=== PATIENT | female | born 1985 | race Caucasian/White ===

== ENCOUNTER 2017-04-12 14:08 | Emergency (ER) | payer BC, OTHER ==
[2017-04-12 15:01] LABS: BILIRUBIN,URINE NEGATIVE (NEGATIVE)
[2017-04-12 15:04] LABS: HCG UR QUAL NEGATIVE; UA CHARGE (STRIP ONLY) YES; UR CULTURE IF IND NOT INDICATED
--- NOTE | 2017-04-12 15:52 | ED Physician Documentation ---
PD HPI ABD PAIN - Stated complaint Stated Complaint: ABD PX - Chief complaint Chief Complaint: Abd Pain - History obtained from History obtained from: Patient - History of Present Illness Timing - onset: Yesterday (in the morning and has continue to some degree since , with lessening but not gone overnight.) Timing - duration: Days (10/09) Timing - details: Abrupt onset, Still present Quality: Aching, Dull, Pain Location: RUQ, Epigastric, LUQ Radiation: No: Left flank, Left shoulder Improved by: Position (feels better sitting up). No: Laying still, BM Worsened by: Eating, Position (lying down) Associated symptoms: Nausea, Loss of appetite. No: Fever, Vomiting, Diarrhea, Melena, Dysuria, Chest pain, Vaginal bleeding Similar symptoms before: Has not had sx before Recently seen: Not recently seen Review of Systems Constitutional: denies: Fever, Chills Nose: denies: Rhinorrhea / runny nose, Congestion Throat: denies: Sore throat Cardiac: denies: Chest pain / pressure, Palpitations Respiratory: denies: Dyspnea, Cough GI: reports: Abdominal Pain, Nausea. denies: Abdominal Swelling, Vomiting, Constipation, Diarrhea : denies: Dysuria, Frequency Skin: denies: Rash, Lesions Neurologic: denies: Generalized weakness, Focal weakness, Numbness, Near syncope Psychiatric: denies: Depressed Endocrine: denies: Polydypsia, Polyuria, Weight loss, Weight gain Immunocompromised: denies: Immunocompromised PD PAST MEDICAL HISTORY - Past Medical History Past Medical History: Yes Cardiovascular: None Respiratory: None Endocrine/Autoimmune: None GI: None Psych: Anxiety Other Past Medical History: Retinal detachment - Past Surgical History Past Surgical History: Yes General: Appendectomy - Present Medications Home Medications: Ambulatory Orders Medication Instructions Recorded Confirmed Escitalopram Oxalate [Lexapro] 20 mg PO DAILY 04/12/17 04/12/17 Famotidine [Pepcid] 20 mg PO BID #60 tablet 04/12/17 Lidocaine HCl [Lidocaine HCl 5 ml MM Q3H PRN #100 ml 04/12/17 Viscous] Norethindrone-E.estradiol-Iron 1 tab PO DAILY 04/12/17 04/12/17 [Minastrin 24 Fe Chewable Tab] Ondansetron HCl [Zofran] 4 mg PO Q6H PRN #20 tablet 04/12/17 - Allergies Allergies/Adverse Reactions: Allergies Allergy/AdvReac Type Severity Reaction Status Date / Time amoxicillin Allergy Nausea Verified 04/12/17 14:17 - Living Situation Living Situation: reports: With spouse/s.o. Living Arrangement: reports: At home - Social History Does the pt smoke?: No Smoking Status: Never smoker Does the pt drink ETOH?: No Does the pt have substance abuse?: No - Family History Family history: denies: Aortic aneursym, Aortic dissection PD ED PE NORMAL - Vitals Vital signs reviewed: Yes - General General: Alert and oriented X 3, No acute distress, Well developed/nourished - HEENT HEENT: PERRL (nonicteric), Pharynx benign - Neck Neck: Supple, no meningeal sign, No adenopathy - Cardiac Cardiac: RRR, No murmur - Respiratory Respiratory: Clear bilaterally - Abdomen Abdomen: Soft, Non distended, No organomegaly, Other (abd tender epigastric to right side upper without guarding nor rebound. Some percussion tendrness. ) Results - Vitals Vitals: Vital Signs - 24 hr 04/12/17 18:03 Heart Rate 57 L Respiratory 17 Rate Blood Pressure 110/63 O2 Saturation 98 Oxygen O2 Source Room air - Labs Labs: Laboratory Tests 04/12/17 04/12/17 04/12/17 14:45 16:25 16:25 WBC 8.8 RBC 4.78 Hgb 13.6 Hct 39.3 MCV 82.3 MCH 28.5 MCHC 34.6 RDW 13.9 Plt Count 196 MPV 7.9 Neut # 5.8 Lymph # 2.0 [place] # 0.6 Eos # 0.3 Baso # 0.0 Absolute Nucleated RBC 0.01 Nucleated RBCs 0.1 Sodium Potassium Chloride Carbon Dioxide Anion Gap BUN Creatinine Estimated GFR (MDRD) Glucose Calcium Total Bilirubin AST ALT Alkaline Phosphatase Total Protein Albumin Globulin Albumin/Globulin Ratio Lipase Urine Color YELLOW Urine Clarity CLEAR Urine pH 7.0 Ur Specific [place] 1.020 Urine Protein NEGATIVE Urine Glucose (UA) NEGATIVE Urine Ketones 15 H Urine Occult Blood NEGATIVE Urine Nitrite NEGATIVE Urine Bilirubin NEGATIVE Urine Urobilinogen 0.2 (NORMAL) Ur Leukocyte Esterase NEGATIVE Ur Microscopic Review NOT INDICATED Urine Culture Comments NOT INDICATED Urine HCG, Qual NEGATIVE H. pylori IgG Antibody Negative 04/12/17 16:25 WBC RBC Hgb Hct MCV MCH MCHC RDW Plt Count MPV Neut # Lymph # [place] # Eos # Baso # Absolute Nucleated RBC Nucleated RBCs Sodium 136 Potassium 3.8 Chloride 103 Carbon Dioxide 27 Anion Gap 6.0 BUN 9 Creatinine 0.6 Estimated GFR (MDRD) 118 Glucose 88 Calcium 9.1 Total Bilirubin 0.6 AST 15 ALT 16 Alkaline Phosphatase 34 L Total Protein 7.0 Albumin 4.0 Globulin 3.0 Albumin/Globulin Ratio 1.3 Lipase 16 L Urine Color Urine Clarity Urine pH Ur Specific [place] Urine Protein Urine Glucose (UA) Urine Ketones Urine Occult Blood Urine Nitrite Urine Bilirubin Urine Urobilinogen Ur Leukocyte Esterase Ur Microscopic Review Urine Culture Comments Urine HCG, Qual H. pylori IgG Antibody - Rads (name of study) abd RUQ U?S Radiology: EMP read contemporaneously (single gallstone nonmobile without fluid around, has normal wall thickness at 2.2 mm. ) PD MEDICAL DECISION MAKING - ED course Complexity details: reviewed results, re-evaluated patient (improved well with GI cocktail and labs are normal (gallstone but no signs of cholecystitis).), considered differential (seems likley gastritis, but was abrupt onset. Consider gallbladder instead, pancreatic. Will get labs, U/S and try GI cocktail. ), d/w patient Departure - Departure Disposition: 01 Home, Self Care Clinical Impression: Upper abdominal pain Gastritis Qualifiers: Gastritis type: unspecified gastritis Chronicity: acute Gastritis bleeding: without bleeding Qualified Code(s): K29.00 - Acute gastritis without bleeding Condition: Stable Record reviewed to determine appropriate education?: Yes Instructions: ED PUD Vs Gastritis, ED Abdominal Pain Unkn Cause Prescriptions: Lidocaine HCl [Lidocaine HCl Viscous] 5 ml MM Q3H PRN #100 ml PRN Reason: Pain Famotidine [Pepcid] 20 mg PO BID #60 tablet Ondansetron HCl [Zofran] 4 mg PO Q6H PRN #20 tablet PRN Reason: Nausea / Vomiting Comments: It sounds like gastritis/ulcer, so take acid reducing medication twice daily for couple of weeks at least. You can use antacids with/without the lidocaine as needed for pains. Zofran if needed for nausea. You do have a gallstone on the ultrasound but the gallbladder does not look irritated/inflammed. This does not sound like the problem. Recheck if not improved over the next few days. [place] frequent small foods for the next week. Discharge Date/Time: 04/12/17 18:35
[2017-04-12] MEDS ORDERED: MAG HYDROX/AL HYDROX/SIMETH 30 ML UDC PO STA (16:12)
[2017-04-12] MEDS ORDERED: LIDOCAINE VISCOUS 2% 15 ML UDC MM STA (16:12)
[2017-04-12] MEDS ORDERED: LIDOCAINE VISCOUS 2% 15 ML UDC MM ONE (16:16)
[2017-04-12] MEDS ORDERED: MAG HYDROX/AL HYDROX/SIMETH 30 ML UDC ONE (16:16)
[2017-04-12 16:34] LABS: BASOPHILS % (AUTO) 0.5 %; EOSINOPHILS # (AUTO) 0.3 10^3/uL (0.0-0.7); HCT - HEMATOCRIT 39.3 % (37.0-47.0); HGB - HEMOGLOBIN 13.6 g/dL (12.0-16.0); LYMPHOCYTES % (AUTO) 22.6 %; MEAN CORPUSCULAR HEMOGLOBIN 28.5 pg (27.0-31.0); MEAN CORPUSCULAR HGB CONC 34.6 g/dL (32.0-36.0); MEAN CORPUSCULAR VOLUME 82.3 fL (81.0-99.0); MEAN PLATELET VOLUME 7.9 fL (7.9-10.8); MONOCYTES # (AUTO) 0.6 10^3/uL (0.0-1.0); MONOCYTES % (AUTO) 6.5 %; NEUTROPHILS # (AUTO) 5.8 10^3/uL (1.5-6.6); NEUTROPHILS % (AUTO) 66.4 %; NUCLEATED RED BLOOD CELLS AUTO 0.1 /100WBC; RED BLOOD COUNT 4.78 10^6/uL (4.20-5.40); RED CELL DISTRIBUTION WIDTH 13.9 % (12.0-15.0); UNCORRECTED WHITE BLOOD COUNT 8.8 x10^3/uL; WHITE BLOOD COUNT 8.8 x10^3/uL (4.8-10.8)
[2017-04-12 16:47] LABS: H. PYLORI IGG ANTIBODY Negative (Negative); HPYLORI NEG QC Negative (Negative); HPYLORI POS QC POSITIVE (Positive)
[2017-04-12 16:59] LABS: ALBUMIN/GLOBULIN RATIO 1.3 (1.0-2.2); BILIRUBIN,TOTAL 0.6 mg/dL (0.2-1.0); CALCIUM 9.1 mg/dL (8.5-10.3); CREATININE 0.6 mg/dL (0.4-1.0); POTASSIUM 3.8 mmol/L (3.5-5.0)
[2017-04-12] MEDS ORDERED: FAMOTIDINE 20 MG/50 ML 50 ML IV ONE ×2 (17:48→18:01)
[2017-04-12 18:04] VITALS: BP 110/63
[2017-04-12] MEDS ORDERED: FAMOTIDINE 20 MG TABLET PO STA (18:08)
[2017-04-12] MEDS ORDERED: FAMOTIDINE 20 MG TABLET ONE (18:09)
--- NOTE | 2017-04-25 09:13 | Ultrasound Report ---
LIMITED ABDOMINAL ULTRASOUND: 04/12/2017 CLINICAL HISTORY: Right upper quadrant pain. TECHNIQUE: Real-time scanning was performed with new accounts representative static images obtained. FINDINGS: The liver appears within normal limits in regards to size and parenchymal pattern. It has a length of 14.6 cm. Normal hepatopetal flow is seen. The gallbladder is contracted. Its wall artificially appears thickened because of its contracted state. The wall thickness is 2.2 mm. A small rounded hypoechoic structure is noted in association with the dependent wall of the proximal aspect of the gallbladder. This measures 5 mm in diameter. This most likely represents a small gallbladder polyp. Secondary consideration is a small sludge ball. The contracted state of the gallbladder probably is the result of the patient not being n.p.o. The common hepatic/common bile duct shows a normal diameter of 1.7 mm. A portion of the pancreas visualized is normal. The right kidney measures 13.4 cm. No mass or pyelocaliceal system distention is seen. IMPRESSION: SMALL ROUNDED STRUCTURE IS NOTED WITHIN THE GALLBLADDER LUMEN ADJACENT TO OR ADHERENT TO THE POSTERIOR WALL OF THE GALLBLADDER. THIS MAY REPRESENT A SMALL POLYP. SECONDARY CONSIDERATION IS A SMALL SLUDGE BALL. JOB #: [id number] EXT JOB #: [id number]
== END 2017-04-12 18:35 | disposition home or self-care (01) ==
LOC: ED 14:08
DX: K29.00 Acute gastritis without bleeding (principal)
CPT/HCPCS: 36415; 76705; 80053; 81003; 81025; 83690; 85025; 87339; 96374; 99283; 99284; A9270; 81001; 87086